=== PATIENT | male | born 1965 | race Native Hawaiian/Other Pacific Islander ===

== ENCOUNTER 2019-12-10 17:04 | Emergency (ER) | payer OTHER ==
[~2019-12-10] VITALS: Ht 185.4 cm; Wt 88.5 kg
[2019-12-10 17:23] VITALS: TEMP 97
[2019-12-10 18:13] LABS: PLATELET COUNT 211 K/uL (142-355)
[2019-12-10 18:15] LABS: POTASSIUM 3.9 mmol/L (3.6-5.2)
[2019-12-10 20:05] VITALS: BP 134/86
== END 2019-12-10 20:05 | disposition home or self-care (01) ==
LOC: ED 17:04
PROVIDERS: Family Medicine
DX: S20.211A Contusion of right front wall of thorax, initial encounter (principal); S16.1XXA Strain of muscle, fascia and tendon at neck level, initial encounter; W13.2XXA Fall from, out of or through roof, initial encounter; Y92.89 Other specified places as the place of occurrence of the external cause
CPT/HCPCS: 80053; 80307; 81000; 85027; 96374; 99284; J1885; Q9963